=== PATIENT | female | born 1975 | race Caucasian/White ===

== ENCOUNTER 2018-10-17 12:48 | Emergency (ER) | payer MEDICAID ==
[~2018-10-17] VITALS: Ht 142.2 cm; Wt 88.5 kg
[2018-10-17 12:54] VITALS: BP 113/71
--- NOTE | 2018-10-17 12:54 | NUR ---
BIB SELF, C/O epigastric pain radiating to left lower back for 3 days, getting worse today. 01/05, denies N/V/D. ER TO [facility].
--- NOTE | 2018-10-17 12:56 | NUR ---
Patient ambulated to bed 11. RN evaluating patient at bedside.
--- NOTE | 2018-10-17 13:24 | NUR ---
DR. PRITCHETT AT THE BEDSIDE FOR PT EVAL.
[2018-10-17] MEDS ORDERED: KETOROLAC 60 MG/2 ML VIAL IM ONE (13:25)
[2018-10-17] MEDS ORDERED: DICYCLOMINE HCL LIQUID 20 MG, ALUMINUM HYD/MAG/SIMETHICONE 30 ML, LIDOCAINE VISCOUS 2% ... PO ONE ×3 (13:25)
[2018-10-17 13:58] VITALS: BP 110/68
--- NOTE | 2018-10-17 13:58 | NUR ---
Patient discharged with v/s stable. Written and verbal after care instructions given and explained. Patient alert, oriented and verbalized understanding of instructions. Ambulatory with steady gait. All questions addressed prior to discharge. ID band removed. Patient advised to follow up with PMD. Rx of MOTRIN, PROLISEC AND NORCO given. Patient educated on indication of medication including possible reaction and side effects. Opportunity to ask questions provided and answered.
== END 2018-10-17 13:58 | disposition home or self-care (01) ==
LOC: MED 12:48
DX: R10.13 Epigastric pain (principal); Z90.710 Acquired absence of both cervix and uterus
CPT/HCPCS: 81002; 81025; 96372; 99283; J1885